=== PATIENT | female | born 1975 | race Caucasian/White ===

== ENCOUNTER 2018-03-10 20:42 | Emergency (ER) | payer MEDICAID, OTHER ==
[~2018-03-10] VITALS: Ht 170.2 cm; Wt 82.0 kg
[~2018-03-10 20:42] MED LIST: ALBU18HF2 IH; CYCL-1 PO; PRED20TA PO
[2018-03-10] MEDS ORDERED: DOXY100C43 PO (22:27)
[2018-03-10 22:44] VITALS: BP 105/65
== END 2018-03-10 22:45 | disposition home or self-care (01) ==
LOC: ER 20:43
DX: S00.211A Abrasion of right eyelid and periocular area, initial encounter (principal); Z88.5 Allergy status to narcotic agent; Z79.899 Other long term (current) drug therapy; W55.03XA Scratched by cat, initial encounter; Y93.89 Activity, other specified; Y92.89 Other specified places as the place of occurrence of the external cause; Y99.8 Other external cause status
CPT/HCPCS: 99283

== ENCOUNTER 2019-07-02 16:49 | Emergency (ER) | payer SELFPAY ==
[~2019-07-02] VITALS: Ht 170.2 cm; Wt 90.0 kg
[2019-07-02 17:03] VITALS: BP 129/83
[2019-07-02] MEDS ORDERED: mupirocin 2% ointment 22GM TP STA (17:21)
[2019-07-02] MEDS ORDERED: SULF1TAB49 PO (17:25)
[2019-07-02] MEDS ORDERED: MUPI22OI30 TOP (17:25)
== END 2019-07-02 17:36 | disposition home or self-care (01) ==
LOC: ER 16:50
DX: T65.891A Toxic effect of other specified substances, accidental (unintentional), initial encounter (principal); T26.92XA Corrosion of left eye and adnexa, part unspecified, initial encounter; T26.91XA Corrosion of right eye and adnexa, part unspecified, initial encounter; L01.00 Impetigo, unspecified; Z88.6 Allergy status to analgesic agent; Z79.899 Other long term (current) drug therapy; Z79.2 Long term (current) use of antibiotics; Z86.14 Personal history of Methicillin resistant Staphylococcus aureus infection; Z98.890 Other specified postprocedural states; Y93.89 Activity, other specified; Y92.89 Other specified places as the place of occurrence of the external cause; Y99.8 Other external cause status
CPT/HCPCS: 99283

== ENCOUNTER 2021-08-29 06:28 | Emergency (ER) | payer SELFPAY ==
[~2021-08-29] VITALS: Ht 170.2 cm; Wt 86.5 kg
[2021-08-29 06:32] VITALS: BP 157/110
[2021-08-29] MEDS ORDERED: AMOX500C2 PO (06:58)
[2021-08-29] MEDS ORDERED: METR500T PO (06:58)
[2021-08-29] MEDS ORDERED: METH4TAB81 PO (06:58)
== END 2021-08-29 07:15 | disposition home or self-care (01) ==
LOC: ER 06:28
DX: K04.7 Periapical abscess without sinus (principal); K08.89 Other specified disorders of teeth and supporting structures; Z98.890 Other specified postprocedural states; Z72.89 Other problems related to lifestyle; Z88.5 Allergy status to narcotic agent; Z79.2 Long term (current) use of antibiotics; Z79.899 Other long term (current) drug therapy
CPT/HCPCS: 99283

== ENCOUNTER 2022-08-04 21:29 | Emergency (ER) | payer MEDICAID ==
[~2022-08-04] VITALS: Ht 170.2 cm; Wt 90.9 kg
[~2022-08-04 21:29] MED LIST changes: +METH4TAB81 PO
[2022-08-04] MEDS ORDERED: HYDROcodone/acetaminophen 5mg/325mg tablet PO ONE (22:25)
[2022-08-04] MEDS ORDERED: TETanus/Pertussis (Acell)/Diphther VAC/PF (Tdap-Adult) 0.5ml syringe IMVAC ONE (22:30)
[2022-08-04] MEDS ORDERED: LIDOcaine 1% W/epiNEPHrine 1:100,000 20ml vial SQ ONE (22:45)
[2022-08-04] MEDS ORDERED: LIDOCAINE 2% w/EPI 1:100:000 30mL injection MDV**cath lab 1 only SQ ONE (22:55)
[2022-08-05 00:05] VITALS: BP 138/83
== END 2022-08-05 00:08 | disposition home or self-care (01) ==
LOC: ER 21:30
DX: S01.21XA Laceration without foreign body of nose, initial encounter (principal); Z88.5 Allergy status to narcotic agent; Z98.890 Other specified postprocedural states; V29.9XXA Motorcycle rider (driver) (passenger) injured in unspecified traffic accident, initial encounter; Y93.89 Activity, other specified; Y92.89 Other specified places as the place of occurrence of the external cause; Y99.8 Other external cause status
CPT/HCPCS: 12011; 70450; 90471; 90715; 99284

== ENCOUNTER 2022-08-09 14:07 | Emergency (ER) | payer MEDICAID, OTHER ==
[~2022-08-09] VITALS: Ht 170.2 cm; Wt 90.9 kg
[2022-08-09 14:26] VITALS: BP 164/100
== END 2022-08-09 15:19 | disposition home or self-care (01) ==
LOC: ER 14:08
DX: S01.81XD Laceration without foreign body of other part of head, subsequent encounter (principal); Z48.00 Encounter for change or removal of nonsurgical wound dressing; Z88.5 Allergy status to narcotic agent; Z79.899 Other long term (current) drug therapy; X58.XXXD Exposure to other specified factors, subsequent encounter
CPT/HCPCS: 99281

== ENCOUNTER 2022-10-01 13:00 | Emergency (ER) | payer MEDICAID ==
[~2022-10-01] VITALS: Ht 170.2 cm; Wt 93.9 kg
[2022-10-01 14:41] VITALS: BP 144/93
[2022-10-01 15:44] LABS: BASOPHILS # (AUTO) 0.1 X10'3 (0-0.2); BASOPHILS % (AUTO) 0.6 % (0-1); EOSINOPHILS # (AUTO) 0.2 X10'3 (0-0.9); EOSINOPHILS % (AUTO) 1.9 % (0-6); HEMATOCRIT 38.4 % (35.0-45.0); HEMOGLOBIN 12.8 g/dl (12.0-16.0); LYMPHOCYTES # (AUTO) 2.8 X10'3 (1.1-4.8); LYMPHOCYTES % (AUTO) 31.7 % (21-51); MEAN CORPUSCULAR HEMOGLOBIN 30.3 PG (27.0-31.0); MEAN CORPUSCULAR HGB CONC 33.3 g/dL (33.0-36.5); MEAN CORPUSCULAR VOLUME 90.7 FL (78-98); MEAN PLATELET VOLUME 7.9 FL (7.4-10.4); MONOCYTES # (AUTO) 0.5 X10'3 (0-0.9); MONOCYTES % (AUTO) 5.9 % (2-12); NEUTROPHILS # (AUTO) 5.2 X10'3 (1.8-7.7); NEUTROPHILS % (AUTO) 59.9 % (42-75); PLATELET COUNT 238 X10'3 (140-440); RED BLOOD COUNT 4.24 X10'6 (4.20-5.60); RED CELL DISTRIBUTION WIDTH 13.1 % (11.5-14.5); WHITE BLOOD COUNT 8.7 X10'3 (4.5-11.0)
[2022-10-01 15:50] LABS: APTT 28 SECONDS (22-32)
[2022-10-01 15:51] LABS: ALANINE AMINOTRANSFERASE 51 U/L (12-78); ALBUMIN 3.7 G/DL (3.4-5.0); ALBUMIN/GLOBULIN RATIO 0.9 (1.1-1.5); ALKALINE PHOSPHATASE 81 IU/L (46-116); ANION GAP 10 (8-16); ASPARTATE AMINO TRANSFERASE 41 U/L (10-37); BILIRUBIN,TOTAL 0.7 MG/DL (0.1-1.0); BLOOD UREA NITROGEN 16 MG/DL (7-18); BUN/CREATININE RATIO 21.3 (6.6-38.0); CALCIUM 9.1 MG/DL (8.5-10.1); CHLORIDE 103 MMOL/L (99-107); CREATININE 0.75 MG/DL (0.40-0.90); GLUCOSE 98 MG/DL (70-104); POTASSIUM 3.7 MMOL/L (3.5-5.1); SODIUM 137 MMOL/L (135-145); TOTAL CARBON DIOXIDE 23.6 MMOL/L (24-32); TOTAL PROTEIN 7.7 G/DL (6.4-8.2); eGFR 83 ML/MIN
[2022-10-01] MEDS ORDERED: ibuprofen tablet 400 MG TABLET PO ONE (16:50)
[2022-10-01] MEDS ORDERED: IBUP-1986 PO (16:53)
[2022-10-01 17:14] LABS: HCG SERUM QL NEGATIVE
== END 2022-10-01 17:57 | disposition home or self-care (01) ==
LOC: ER 13:01
DX: N92.0 Excessive and frequent menstruation with regular cycle (principal); Z88.2 Allergy status to sulfonamides; Z88.5 Allergy status to narcotic agent; Z79.899 Other long term (current) drug therapy; Z79.2 Long term (current) use of antibiotics
CPT/HCPCS: 36415; 80053; 84703; 85025; 85610; 85730; 99284